=== PATIENT | female | born 1960 | race African-American/Black ===

== ENCOUNTER 2023-08-10 15:30 | Emergency (ER) | payer MEDICAID ==
[~2023-08-10] VITALS: Ht 170.2 cm; Wt 115.0 kg
[2023-08-10 15:30] VITALS: BP 179/89; PULSE 108; RESP 18; O2SAT 98
[2023-08-10 16:08] VITALS: TEMP 98.2
[2023-08-10] MEDS: ACETAMINOPHEN 325MG TABLET PO NR (16:08)
== END 2023-08-10 22:00 | disposition home or self-care (01) ==
LOC: ER 15:48
DX: M54.9 Dorsalgia, unspecified (principal); V49.59XA Passenger injured in collision with other motor vehicles in traffic accident, initial encounter; Y93.89 Activity, other specified; Y92.89 Other specified places as the place of occurrence of the external cause; Y99.8 Other external cause status
CPT/HCPCS: 71250; 74176; 81025; 99284